=== PATIENT | male | born 1940 | race Caucasian/White ===

== ENCOUNTER → 2018-08-20 | Outpatient (REF) | payer OTHER, MEDICARE ==
[~2018-08-20] MED LIST: B-1100 MG PO; CEPHALEXIN500 M1; DEXAMETHASON2 MG; DILANTIN100 MG; DILANTIN100 MG OR; FAMOTIDINE20 M1; FLAGYL500 MG OR; IMODIUM OR; LABETALOL100 MG OR; METO25TAB PO; METOPROL TAR25 MG OR; METOPROL TAR25 MG PO; MULTI OR; PEPCID20 MG OR; QUESTRAN4 G1 OR; TYLENOL325 MG OR; VIT E D-ALP1000 UNIT PO; VITAMIN D400 UNI2; VITAMIN D50000 UN1 OR
== END | disposition home or self-care (01) | DRG 552 ==
LOC: DI 12:40
PROVIDERS: ATTEND Internal Medicine Geriatric Medicine
DX: M54.6 Pain in thoracic spine (principal); J98.11 Atelectasis

== ENCOUNTER → 2018-09-02 | Outpatient (REF) | END | disposition home or self-care (01) | DRG 434 | LOC: LAB 11:22 | PROVIDERS: ATTEND Internal Medicine Gastroenterology | DX: K74.60 Unspecified cirrhosis of liver (principal); K59.00 Constipation, unspecified; Z85.038 Personal history of other malignant neoplasm of large intestine ==

== ENCOUNTER 2019-02-12 14:50 | Inpatient (IN) | payer MEDICARE ==
[~2019-02-12] VITALS: Ht 185.4 cm; Wt 75.5 kg
[~2019-02-12 14:50] MED LIST changes: +B121000 MCG PO; +FUROSEMIDE20 MG PO; +LISINOPRIL10 MG PO
--- NOTE | 2019-02-12 14:50 | NUR ---
PATIENT TO ROOM VIA EMS WITH EYES CLOSED, ORIENTED ONLY TO SELF.
[2019-02-12 16:21] LABS: HEMATOCRIT 29.7 % (39.0-50.0); IMMATURE GRANULOCYTES 1.2 % (0.0-5.0); MEAN CELL VOLUME 100.7 fL CALC (80.0-100.0); MEAN CORPUSCULAR HGB 33.9 pG CALC (26.0-32.0); MEAN CORPUSCULAR HGB CONC 33.7 g/L CALC (32.0-36.0); NEUT# 4.23 thou/uL (1.82-7.42); RED BLOOD COUNT 2.95 mill/uL (4.70-6.10); RED CELL DISTRI WIDTH 17.3 % (11.5-15.5)
--- NOTE | 2019-02-12 16:37 | NUR ---
PT WITH LAC IV SITE PROVIDES BLOOD DRAW. FAMILY AT BEDSIDE OF VERY ILL MAN.
[2019-02-12 16:39] LABS: INTERNATIONAL NORMALIZED RATIO 1.3 RATIO (0.7-1.3); PROTHROMBIN TIME 13.4 SECONDS (9.0-12.5)
[2019-02-12 16:58] LABS: ALBUMIN 2.8 g/dL (3.2-5.0); BILIRUBIN, TOTAL 5.5 mg/dL (0.0-1.4); CREATININE 1.8 mg/dL (0.7-1.3); POTASSIUM 2.6 mmol/l (3.5-5.1); TOTAL PROTEIN 7.6 g/dL (6.3-8.2)
[2019-02-12] MEDS ORDERED: TURMERIC CURCU500 MG PO (17:11)
--- NOTE | 2019-02-12 19:25 | NUR ---
DR DWYER ORDERS TELEMETRY FOR PT PER POTASSIUM ADMINISTRATION. FAMILY STATES THAT THEY WANT HIM TO BE FULL CODE, DO EVERYTHING TO SAVE HIM. REPORT WAS CALLED TO [place].
--- NOTE | 2019-02-12 19:30 | NUR ---
TO FLOOR VIA STRETCHER WITH POCKET MONITOR/NURSE/DAUGHTER. VALUABLES WITH PT.
--- NOTE | 2019-02-12 20:05 | NUR ---
PT TO BE ADMITTED. REPORT CALLED TO FLOOR. TO FLOOR WITH STRETCHER.FAMILY AT BEDSIDE. TRANSFERRED TO BED. PT GROGGY.
--- NOTE | 2019-02-12 20:06 | NUR ---
PT. ARRIVED TO THE FLOOR VIA STETCHER ACCOMPANIED BY ER STAFF. TRANSFERRED OVER TO BED @1999. PT. IS ALERT TO SELF ONLY. FAMILY IN AT BEDSIDE AND UPDATED ON POC. PT. IS VERY DROWSY WITH EYES SHUT WILL OPEN THEM INTERMITTENTLY. WILL AROUSE TO VERBAL STIMULI WELL. ALL PMH OBTAINED FROM AT BEDSIDE. PER PT. HAS HAD MULTIPLE FALLS AT HOME OUT OF THE BED AND WITHIN THE LAST WEEK HAS NOT BEEN WALKING MOSTLY BED BOUND OTHER THAN THE FALLS HE HAS HAD. FALL BAND APPLIED AND BED ALARM IS SET FOR SAFETY PRECAUTIONS. X3 SIDE RAILS UP. ADMISSION ASSESSMENT COMPLETED. PT. HAS MULTIPLE ABRASIONS NOTED THROUGHOUT BODY AND A DRY RASH NOTED TO BUTTOCKS PER FAMILY THEY REPORT THESE ARE FROM FALLS AT HOME AND THEY HAVE CARPET SO IT MAY BE RUG BURN WELL; PHOTOS OBTAINED AND TO BE PLACED IN CHART. TELEMETRY IN PLACE. PT. IS PLACED INTO A GOWN. PT. IS ABLE TO TURN. IV SITE PATENT AND SL. AWAITING POTASSIUM TO BE BROUGHT SO IT CAN BE ADMINISTERED. CALL LIGHT IS IN REACH. WILL CONTINUE TO MONITOR.
--- NOTE | 2019-02-12 20:30 | NUR ---
NOTIFIED TALENT MANAGEMENT SPECIALIST OF NEED FOR POTASSIUM IV FOR PT.
[2019-02-12 20:36] VITALS: BP 146/72
--- NOTE | 2019-02-12 21:19 | NUR ---
HAD TO AWAIT POTASSIUM MEDICATION HAD TO BE REPROFILED AND THEN BROUGHT FROM TACK WELDER. MEDICATION HUNG AT THIS TIME. ONLY 50MLS TO BE INFUSED FOR TOTAL DOSE ORDERED.
[2019-02-12 23:41] VITALS: BP 133/65
[2019-02-12 23:45] LABS: HEMATOCRIT 30.2 % (39.0-50.0); IMMATURE GRANULOCYTES 1.4 % (0.0-5.0); MEAN CORPUSCULAR HGB 33.4 pG CALC (26.0-32.0); MEAN CORPUSCULAR HGB CONC 33.1 g/L CALC (32.0-36.0); NEUT# 7.4 thou/uL (1.82-7.42); RED BLOOD COUNT 2.99 mill/uL (4.70-6.10); RED CELL DISTRI WIDTH 17.7 % (11.5-15.5)
[2019-02-13] LABS: ALBUMIN 2.7 g/dL (3.2-5.0); BILIRUBIN, TOTAL 5.8 mg/dL (0.0-1.4); CREATININE 1.7 mg/dL (0.7-1.3); POTASSIUM 3.5 mmol/l (3.5-5.1); TOTAL PROTEIN 7.4 g/dL (6.3-8.2)
--- NOTE | 2019-02-13 00:05 | NUR ---
PT. CLEANED OF A LARGE INCONTINENCE OF URINE; CBB AND LINENS CHANGED. PT. TOLERATED WELL. PO FLUIDS GIVEN. BED ALARM ON. CALL LIGHT IS IN REACH.
[2019-02-13 03:10] VITALS: BP 131/61
--- NOTE | 2019-02-13 03:10 | NUR ---
PT. INTEMITTENTLY RESTLESS. URINE SPECIMEN OBTAINED AT THIS TIME. PT. ABLE TO VOID 350 MLS INTO URINAL. VSS. PO FLUIDS OFFERED. BED ALARM ON. CALL LIGHT IS IN REACH.
[2019-02-13 03:56] LABS: URINE BILIRUBIN - DIPSTICK NEGATIVE (NEGATIVE); URINE BLOOD DIPSTICK TRACE-INTACT (NEGATIVE); URINE COLOR YELLOW; URINE GLUCOSE - DIPSTICK NEGATIVE (NEGATIVE); URINE KETONE NEGATIVE (NEGATIVE); URINE NITRITE - DIPSTICK NEGATIVE (Negative); URINE PH 6.5 (4.5-8.0); URINE PROTEIN - DIPSTICK NEGATIVE (NEG-TRACE); URINE UROBILINOGEN - DIPSTICK 0.2 E.U./dL (0.2)
[2019-02-13 03:57] LABS: URINE LEUK ESTERASE LARGE (NEGATIVE)
[2019-02-13 03:58] LABS: URINE RBC 0-2 RBC/hpf (0-5)
[2019-02-13 03:59] LABS: URINE BACTERIA FEW hpf; URINE EPITHELIAL CELLS FEW EPI/hpf (0-FEW)
[2019-02-13 04:04] LABS: BARBITURATES NEGATIVE (NEGATIVE); COCAINE NEGATIVE (NEGATIVE); METHADONE NEGATIVE (NEGATIVE); OXCYCODONE NEGATIVE (NEGATIVE); TETRAHYDROCANNABIONOL NEGATIVE (NEGATIVE); TRICYLIC ANTIDEPRESSANTS NEGATIVE (NEGATIVE)
--- NOTE | 2019-02-13 05:22 | NUR ---
CHECKED FOR INCONTINENCE OF URINE AND NONE NOTED. PLACED URINAL IN BETWEEN LEGS TO SEE IF HE WILL VOID ON HIS OWN AGAIN. SCHED MED GIVEN. PO FLUIDS OFFERED. CALL LIGHT IS IN REACH.
[2019-02-13 05:45] LABS: HEMATOCRIT 27.8 % (39.0-50.0); HEMOGLOBIN 9.2 g/dl (14.0-18.0); IMMATURE GRANULOCYTES 1.2 % (0.0-5.0); MEAN CELL VOLUME 102.2 fL CALC (80.0-100.0); MEAN CORPUSCULAR HGB 33.8 pG CALC (26.0-32.0); MEAN CORPUSCULAR HGB CONC 33.1 g/L CALC (32.0-36.0); NEUT# 6.32 thou/uL (1.82-7.42); RED BLOOD COUNT 2.72 mill/uL (4.70-6.10); RED CELL DISTRI WIDTH 17.3 % (11.5-15.5)
[2019-02-13 05:51] LABS: ALBUMIN 2.5 g/dL (3.2-5.0); BILIRUBIN, TOTAL 5.2 mg/dL (0.0-1.4); CREATININE 1.7 mg/dL (0.7-1.3); TOTAL PROTEIN 6.9 g/dL (6.3-8.2)
[2019-02-13 06:06] LABS: POTASSIUM 2.6 mmol/l (3.5-5.1)
--- NOTE | 2019-02-13 07:30 | NUR ---
PT RESTING IN BED NO SIGNS OF DISTRESS NOTED, RESP SHALLOW. PT VERY LETHARGIC, SLOWLY OPENED HIS EYES, NON VERBAL AT THIS TIME, VITALS OBTAINED. PT DOES NOT OBEY SIMPLE COMMANDS.PT APPEARS JAUNDICE, NOTED ABRASIONS AND BRUISING TO EXTREMITIES PAINTER PLATE AT BEDSIDE TO FEED, PT UNABLE TO EAT PANCAKES, GIVEN PUDDING INSTEAD, TOLERATED WELL. ASSESSMENT COMPLETED, CALL LIGHT IN REACH,CONTINUE TO MONITOR.
[2019-02-13 07:31] VITALS: BP 125/65
--- NOTE | 2019-02-13 09:42 | NUR ---
PT RESTING IN BED, GIVEN PO POTASSIUM, REPOSITIONED IN BED WITH PILLOWS. CALL LIGHT IN REACH,CONTINUE TO MONITOR. BED ALARM FOR SAFETY.
[2019-02-13 11:25] VITALS: BP 106/50
--- NOTE | 2019-02-13 13:35 | NUR ---
AIR MATTRESS ARRIVED, PT PLACED ON NEW MATTRESS AND REPOSITIONED WITH PILLOWS. FAMILY AT BEDSIDE, PT TOLERATED WELL. CALL LIGHT IN REACH,CONTINUE TO MONITOR.
[2019-02-13 16:10] VITALS: BP 101/50
--- NOTE | 2019-02-13 16:14 | NUR ---
PT HAD NOT VOIDED ALL DAY, BLADDER SCANNED AMT >710ML. CALL MADE TO FOR MURPHY CATHETER, WHEN RETURNED TO DISCUSS WITH FAMILY PT HAD VOIDED. POST RESIDUAL BLADDER SCANNED AMT >405ML. DUE TO URINARY RETENTION #16F MURPHY PLACED USING STERILE TECHNINQUE, NOTED SOME RESISTANCE BUT CATHETER INSERTED INTO BLADDER CLEAR YELLOW URINE WITH SEDIMENT NOTED IN TUBING. PT TOLERATED WELL. STAT LOCK IN PLACE TO L INNER THIGH, REPOSITONED PT IN BED, CALL LIGHT IN REACH,CONTINUE TO MONITOR, FAMILY AT BEDSIDE.
--- NOTE | 2019-02-13 18:55 | NUR ---
RECEIVED ORDERS FROM TO OBTAIN URINE CULTURE, BLOOD CULTURES, SPUTUM CULTURE, AND A 1x DOSE OF SOLUMEDROL. ZHANE ENTERED. DISCUSSED WITH PT, INFORMED PT OF STRAIGHT CATHETERIZATION TO OBTAIN URINE,#16F CATHETER INSERTED USING STERILE TECHINIQUE NO RESISTANCE NOTED, PT TOLERATED WELL. SPECIMEN SENT TO LAB. CONTINUE TO MONITOR.
[2019-02-13 19:33] VITALS: BP 113/58
--- NOTE | 2019-02-13 20:20 | NUR ---
RESTING IN BED WITH EYES CLOSED AND IS DROWSY. NO DISTRESS NOTED. PT. IS ON AIR MATRESS. MURPHY CATHETER INTACT AND DRAINING AT GRAVITY LEVEL.PT. IS ONLY ALERT TO SELF. SPEECH IS GARBLED. GENERALIZED ABRASIONS; SEE PHOTOS IN CHART. IV SITE PATENT AND INFUSING ORDERED IVF. BED ALARM IN PLACE. CALL LIGHT IS IN REACH.
--- NOTE | 2019-02-13 21:50 | NUR ---
PT. GIVEN A CBB AND LINENS CHANGED. PT. TOLERATED WELL. REPOSITIONED. BED ALARM ON. CALL LIGHT IS IN REACH.
--- NOTE | 2019-02-13 22:20 | NUR ---
PT. IS A LITTLE RESTLESS AND MEDICATED WITH ORDERED RESTORIL. PT. ATE A COMPLETE ACTIVIA YOGURT AT THIS TIME WELL. BED ALARM ON. CALL LIGHT IS IN REACH.
[2019-02-13 23:33] VITALS: BP 95/54
--- NOTE | 2019-02-13 23:37 | NUR ---
PT. RESTING IN BED WITH EYES CLOSED; NO DISTRESS NOTED; REPOSITIONED. VSS. BED ALARM ON. CALL LIGHT IS IN REACH.
[2019-02-14 04:05] VITALS: BP 110/53
--- NOTE | 2019-02-14 04:30 | NUR ---
NOTIFIED DR. DWYER THAT PER CARDIOVASCULAR RN PT. IS POSSIBLY IN AFLUTTER. EKG DONE BT RT AND DUE TO PT. SHAKING CONTINUOUSLY UNABLE TO OBTAIN A RHYTHYM OF EKG. NEW ORDERS RECEIVED TO D/C TELEMETRY AT THIS TIME.
[2019-02-14 05:29] LABS: ALBUMIN 2.4 g/dL (3.2-5.0); BILIRUBIN, TOTAL 4.5 mg/dL (0.0-1.4); POTASSIUM 2.8 mmol/l (3.5-5.1); TOTAL PROTEIN 6.7 g/dL (6.3-8.2)
[2019-02-14 05:35] LABS: HEMATOCRIT 30.2 % (39.0-50.0); HEMOGLOBIN 10.1 g/dl (14.0-18.0); IMMATURE GRANULOCYTES 1.6 % (0.0-5.0); MEAN CELL VOLUME 103.1 fL CALC (80.0-100.0); MEAN CORPUSCULAR HGB 34.5 pG CALC (26.0-32.0); MEAN CORPUSCULAR HGB CONC 33.4 g/L CALC (32.0-36.0); NEUT# 4.11 thou/uL (1.82-7.42); RED BLOOD COUNT 2.93 mill/uL (4.70-6.10); RED CELL DISTRI WIDTH 17.6 % (11.5-15.5)
--- NOTE | 2019-02-14 07:00 | NUR ---
REPORT RECEIVED FROM SIXTO ALEJANDRA;PT APPEARS TO BE SLEEPING IN SEMI FOWLERS POSITION;NO S/S OF DISTRESS NOTED;RESPIRATIONS EVEN AND UNLABORED ON RA;IV FLUIDS INFUSING WITH EASE TO RFA PER ORDER;MURPHY CATHETER PATENT DRAINING TO GRAVITY;ALL SAFETY PRECAUTIONS IN PLACE WITH BED IN THE LOWEST POSITION, BED ALARM ON FOR SAFETY, AND CALL LIGHT IN REACH;WILL CONTINUE TO MONITOR
[2019-02-14 08:00] VITALS: BP 148/73
--- NOTE | 2019-02-14 08:00 | NUR ---
PT RESTING IN SEMI FOWLERS POSITION WITH SPOUSE AT BEDSIDE, ALERT TO SELF AT TIMES BUT MOSTLY NON-VERBAL;RE-POSITIONED IN BED FOR BREAKFAST, ANAT ALVARADO TO FEED;VS OBTAINED AND ASSESSMENT COMPLETED;NO S/S OF DISTRESS NOTED;RESPIRATIONS SHALLOW ON RA;ABDOMEN SOFT ON PALPATION AND ACTIVE IN ALL 4 QUADRANTS;MURPHY CATHETER APPEARS PATENT DRAINING DAINA/CLEAR URINE TO GRAVITY WITH EASE, STAT LOCK NOTED TO LEFT THIGH;WEAK PEDAL PULSES;MULTIPLE ABRASIONS NOTED TO BILATERAL KNEES AND SHOULDER R/T FALL FIRE RANGER, PHOTOGRAPHS IN CHART;#22G TO RIGHT FOREARM INFUSING D5 1/2 NS @ 125ML/HR PER ORDER,SITE APPEARS HEALTHY;ALL SAFETY PRECAUTIONS REINFORCED AT THIS TIME WITH BED IN THE LOWEST POSITION AND BED ALARM ON FOR SAFETY;CALL LIGHT IN REACH;WILL CONTINUE TO MONITOR
--- NOTE | 2019-02-14 08:30 | NUR ---
AT BEDSIDE DISCUSSING POC WITH FAMILY AND PATIENT.
--- NOTE | 2019-02-14 08:45 | NUR ---
DISCUSSED PATIENT CODE STATUS INDEPTH TO FAMILY;FAMILY REPORTS THAT THEY DO NOT WANT ANY LIFE SAVING MEASURES TAKEN IF THE PATIENTS HEART WAS TO STOP SUCH INTUBATION OR CPR;DNR FORM SIGNED BY BOTH AND FAMILY. DNR FORM PLACED IN CHART AND BRACELET APPLIED TO PT LEFT ARM. WILL CONTINUE TO MONITOR
[2019-02-14 11:00] VITALS: BP 118/75
--- NOTE | 2019-02-14 11:30 | NUR ---
PT APPEARS TO BE SLEEPING IN LEFT SIDE LAYING POSITION, MOVING AROUND BED AT TIMES;RESPIRATIONS EVEN AND UNLABORED ON RA;NO S/S OF DISTRESS NOTED;POTASSIUM K RIDER INFUSING TO RFA WITH EASE;MURPHY CATHETER DRAINING TO GRAVITY;ASSESSMENT REMAINS UNCHANGED AT THIS TIME;FALL PRECAUTIONS REMAIN IN PLACE WITH BED ALARM ON FOR SAFETY;CALL LIGHT IN REACH;WILL CONTINUE TO MONITOR
[2019-02-14 15:58] VITALS: BP 124/71
--- NOTE | 2019-02-14 15:59 | NUR ---
LAB AT BEDSIDE
--- NOTE | 2019-02-14 16:00 | NUR ---
PT RESTING IN BED WITH MULTIPLE FAMILY MEMBERS AT BEDSIDE;RESPIRATIONS EVEN AND UNLABORED,SHALLOW ON RA;NO S/S OF DISTRESS NOTED;IV FLUIDS INFUSING TO RFA WITH EASE;MURPHY CATHETER PATENT;PT RE-POSITIONED IN BED;VS OBTAINED;ASSESSMENT REMAINS UNCHANGED AT THIS TIME;FALL PRECAUTIONS IN PLACE WITH BED ALARM ON FOR SAFETY;CALL LIGHT IN REACH;WILL CONTINUE TO MONITOR
--- NOTE | 2019-02-14 16:32 | NUR ---
AT BEDSIDE DISCUSSING POC.
[2019-02-14 16:50] LABS: CREATININE 1.9 mg/dL (0.7-1.3)
[2019-02-14 17:05] LABS: POTASSIUM 3.4 mmol/l (3.5-5.1)
[2019-02-14 20:24] VITALS: BP 114/68
--- NOTE | 2019-02-14 20:24 | NUR ---
ASSESSMENT COMPLETED. IV SITE PATENT AND INFUSING IVF WELL, NO REDNESS NOTED TO SITE. PO FLUIDS OFFERED. FAMILY IN AT BEDSIDE. REPOSITIONED ONTO LEFT SIDE. CHECKED FOR BM AND NONE NOTED. MURPHY CATHETER INTACT AND DRAINING AT GRAVITY LEVEL. GENERALIZED ABRASIONS NOTED. PT. ALERT TO SELF ONLY. ENCOURAGED TO CALL FOR ANY NEEDS. BED ALARM ON AND CALL LIGHT IS IN REACH.
--- NOTE | 2019-02-14 23:37 | NUR ---
PT. SITTING UP IN BED WITH NO DISTRESS NOTED; PO FLUIDS GIVEN. SCHED MARITZA PRIETO. CALL LIGHT IS IN REACH. BED ALARM ON. WILL CONTINUE TO MONITOR.
--- NOTE | 2019-02-15 01:00 | NUR ---
PT. GIVEN A CBB AND LINENS CHANGED. CLEANED OF A BM; PHOTOS RE-OBTAINED OF ABRASIONS AND BUTTOCKS FOR CHART. IV SITE TO RFA IS INFILTRATED AND REMOVED; CATHETER TIP INTACT. NEW IV STARTED TO LFA X1 ATTEMPT.AQUACEL FOAM APPLIED TO BUTTOCKS. REPOSITOINED ONTO LEFT SIDE.
[2019-02-15 03:57] VITALS: BP 124/70
--- NOTE | 2019-02-15 04:00 | NUR ---
PT. CHECKED FOR INCONTINENCE OF BM AND NONE NOTED. VSS. REPOSITIONED ONTO RIGHT SIDE. BED ALARM ON FOR SAFETY PRECAUTIONS. IV SITE PATENT AND INFUSING IVF WELL, NO REDNESS OR SWELLING NOTED TO SITE. PO FLUIDS GIVEN. CALL LIGHT IS IN REACH.
--- NOTE | 2019-02-15 05:30 | NUR ---
CHECKED FOR BM AND NONE NOTED. REPOSITIONED INTO SEMI-FOWLERS POSITION. PO FLUIDS OFFERED. CALL LIGHT IS IN REACH. BED ALARM IN PLACE.
[2019-02-15 06:22] LABS: ALBUMIN 2.2 g/dL (3.2-5.0); BILIRUBIN, TOTAL 4.2 mg/dL (0.0-1.4); CREATININE 1.8 mg/dL (0.7-1.3); POTASSIUM 3.2 mmol/l (3.5-5.1); TOTAL PROTEIN 6.5 g/dL (6.3-8.2)
--- NOTE | 2019-02-15 06:55 | NUR ---
REPORT RECEIVED FROM SIXTO ALEJANDRA;PT APPEARS TO BE SLEEPING IN SEMI FOWLERS POSITION;RESPIRATIONS APPEAR EVEN AND UNLABORED,SHALLOW ON O2 @ 2L VIA NC;NO S/S OF DISTRESS NOTED;MURPHY CATHETER PATENT DRAINING TO GRAVITY;IVF INFUSING TO LFA WITH EASE;ALL SAFETY PRECAUTIONS IN PLACE WITH BED IN THE LOWEST POSITION AND BED ALARM ON FOR SAFETY;CALL LIGHT IN REACH;WILL CONTINUE TO MONITOR
--- NOTE | 2019-02-15 08:10 | NUR ---
AT BEDSIDE DISCUSSING POC WITH PT AND SPOUSE.
[2019-02-15 09:15] VITALS: BP 129/80
--- NOTE | 2019-02-15 09:15 | NUR ---
PT RESTING IN BED WITH SPOUSE AT BEDSIDE, A&O X1 AND NON-VERBAL AT TIMES;VS OBTAINED AND ASSESSMENT COMPLETED;NO S/S OF DISTRESS NOTED;RESPIRATIONS EVEN AND UNLABORED,SHALLOW ON O2 @ 2L VIA NC;ABDOMEN SOFT ON PALPATION AND ACTIVE IN ALL 4 QUADRANTS;WEAK PEDAL PULSES;MULTIPLE BRUISING AND HEELING WOUNDS NOTED THROUGHOUT BODY,PHOTOGRAPHS IN CHART;#22G TO LEFT FOREARM INFUSING D5 1/2 NS @ 125ML/HR PER ORDER,SITE APPEARS HEALTHY;MURPHY CATHETER PATENT DRAINING TO GRAVITY WITH EASE,STAT LOCK TO LEFT THIGH;PT AND FAMILY DENY ANY ADDITIONAL NEEDS AT THIS TIME AND ARE ENCOURAGED TO CALL FOR ASSISTANCE IF NEEDED;FALL PRECAUTIONS IN PLACE WITH BED IN THE LOWEST POSITION AND BED ALARM ON FOR SAFETY;CALL LIGHT IN REACH;WILL CONTINUE TO MONITOR
--- NOTE | 2019-02-15 11:30 | NUR ---
PT APPEARS TO BE SLEEPING IN SEMI FOWLERS POSITION WITH FAMILY AT BEDSIDE;RESPIRATIONS APPEAR EVEN AND UNLABORED,SHALLOW ON O2 @2L VIA NC;NO S/S OF DISTRESS NOTED;MURPHY CATHETER PATENT DRAINING TO GRAVITY WITH EASE;IV FLUIDS INFUSING TO LFA, POTASSIUM CHLORIDE ADMINISTERED AT THIS TIME PER ORDER;FAMILY DENIES ANY ADDITIONAL NEEDS AT THIS TIME;FALL PRECAUTIONS REMAIN IN PLACE WITH BED ALARM ON FOR SAFETY;CALL LIGHT IN REACH;WILL CONTINUE TO MONITOR
--- NOTE | 2019-02-15 13:25 | NUR ---
PHYSICAL THERAPY AT BEDSIDE
--- NOTE | 2019-02-15 13:34 | NUR ---
OT AT BEDSIDE
[2019-02-15 15:05] VITALS: BP 120/75
--- NOTE | 2019-02-15 15:30 | NUR ---
PT APPEARS TO BE SLEEPING IN SEMI FOWLERS POSITION WITH FAMILY AT BEDSIDE;RESPIRATIONS EVEN AND UNLABORED ON O2 @ 2L VIA NC;NO S/S OF DISTRESS NOTED;MURPHY CATHETER DRAINING TO GRAVITY WITH EASE;IVF INFUSING TO LEFT FOREARM;FAMILY DENIES ANY ADDITIONAL NEEDS AT THIS TIME;FALL PRECAUTIONS REMAIN IN PLACE WITH BED ALARM ON FOR SAFETY;CALL LIGHT IN REACH;WILL CONTINUE TO MONITOR
[2019-02-15 19:29] VITALS: BP 125/72
--- NOTE | 2019-02-15 20:00 | NUR ---
PT RESTING IN BED, FAMILY AT BEDSIDE, PT IS NONVERBAL. DRESSING TO BUTTOCK CDI, PT HAS MULTIPLE ABRASIONS FROM FALL. MURPHY DRAINING TO GRAVITY, STAT LOCK IN PLACE, NOTED DARK DAINA URINE IN TUBING. PT IS ON AN AIRMATTRESS. DISCUSSED POC WITH FAMILY. PT PLACED ON BED AGGARWAL FOR POSSIBLE BM. ASSESSMENT COMPLETED. CALL LIGHT IN REACH,CONTINUE TO MONITOR.
--- NOTE | 2019-02-15 22:21 | NUR ---
PT RESTING IN BED, NO SIGNS OF DISTRESS NOTED, RESP EVEN AND UNLABORED. CALL LIGHT IN REACH,CONTINUE TO MONITOR.
--- NOTE | 2019-02-15 23:01 | NUR ---
PT REPOSITIONED IN BED, CONTINUE TO MONITOR.
--- NOTE | 2019-02-16 04:10 | NUR ---
PT RESTING IN BED, REPOSITIONED BY CHARGE ACCOUNT IDENTIFICATION CLERK, VITALS OBTAINED, NO SIGNS OF DISTRESS NOTED, RESP EVEN AND UNLABORED. CALL LIGHT IN REACH,CONTINUE TO MONITOR.
[2019-02-16 04:29] VITALS: BP 117/63
[2019-02-16 05:40] LABS: HEMATOCRIT 28.8 % (39.0-50.0); HEMOGLOBIN 9.7 g/dl (14.0-18.0); MEAN CELL VOLUME 100.7 fL CALC (80.0-100.0); MEAN CORPUSCULAR HGB 33.9 pG CALC (26.0-32.0); MEAN CORPUSCULAR HGB CONC 33.7 g/L CALC (32.0-36.0); NEUT# 4.24 thou/uL (1.82-7.42); RED BLOOD COUNT 2.86 mill/uL (4.70-6.10); RED CELL DISTRI WIDTH 17.7 % (11.5-15.5)
[2019-02-16 06:05] LABS: ALBUMIN 2.1 g/dL (3.2-5.0); BILIRUBIN, TOTAL 4.1 mg/dL (0.0-1.4); CREATININE 1.5 mg/dL (0.7-1.3); TOTAL PROTEIN 6.2 g/dL (6.3-8.2)
--- NOTE | 2019-02-16 07:00 | NUR ---
REPORT RECEIVED FROM DELFINO ALLEN;PT APPEARS TO BE SLEEPING IN SEMI FOWLERS POSITION;RESPIRATIONS APPEARS EVEN AND UNLABORED ON RA;NO S/S OF DISTRESS NOTED;IV FLUIDS INFUSING TO LFA WITH EASE;MURPHY CATHETER PATENT DRAINING TO GRAVITY WITH EASE;ALL SAFETY PRECAUTIONS IN PLACE WITH BED ALARM ON FOR SAFETY;CALL LIGHT IN REACH;WILL CONTINUE TO MONITOR
--- NOTE | 2019-02-16 07:15 | NUR ---
XRAY AT BEDSIDE
--- NOTE | 2019-02-16 08:05 | NUR ---
AT BEDSIDE DISCUSSING POC.
--- NOTE | 2019-02-16 08:50 | NUR ---
PT RESTING IN RIGHT SIDE LAYING POSITION, ALERT TO PERSON;VS OBTAINED AND ASSESSMENT COMPLETED;PT DENIES ANY CURRENT PAIN OR DISCOMFORTS, NO S/S OF DISTRESS NOTED;RESPIRATIONS SHALLOW ON O2 @ 2L VIA NC, DIMINISHED LUNG SOUND;NON-PRODUCTIVE COUGH AT TIMES;ABDOMEN SOFT ON PALPATION AND ACTIVE IN ALL 4 QUADRANTS;MURPHY CATHETER PATENT DRAINING TO GRAVITY WITH EASE,STAT LOCK TO LEFT THIGH NOTED;WEAK PEDAL PULSES;MULTIPLE SKIN ABRASIONS NOTED THROUGHOUT, PHOTOGRAPHS IN CHART;#22G TO LEFT FOREARM INFUSING D5 1/2 NS @ 125ML/HR,SITE APPEARS HEALTHY;POTASSIUM K-RIDER HUNG AT THIS TIME PER ORDER;PT DENIES ANY ADDITIONAL NEEDS AT THIS TIME;FALL PRECAUTIONS IN PLACE WITH BED IN THE LOWEST POSITION AND CALL LIGHT IN REACH;WILL CONTINUE TO MONITOR
[2019-02-16 08:52] VITALS: BP 107/60
--- NOTE | 2019-02-16 10:05 | NUR ---
PHYSICAL THERAPY AT BEDSIDE WORKING WITH PATEINT.
--- NOTE | 2019-02-16 10:23 | NUR ---
Therapist entered room at 10:00 A.M., unable to arouse patient, attempted numerous times.
--- NOTE | 2019-02-16 11:20 | NUR ---
PT APPEARS TO BE SLEEPING IN SEMI FOWLERS POSITION;RESPIRATIONS REMAIN SHALLOW ON O2 @ 2L VIA NC;NO S/S OF DISTRESS NOTED;IV POTASSIUM HUNG AT THIS TIME AND INFUSING WELL TO LFA;MURPHY CATHETER PATENT DRAINING TO GRAVITY WITH EASE;FALL PRECAUTIONS NOTED WITH BED IN THE LOWEST POSITION AND BED ALARM ON FOR SAFETY;CALL LIGHT IN REACH;WILL CONTINUE TO MONITOR
[2019-02-16 15:15] VITALS: BP 119/70
--- NOTE | 2019-02-16 15:30 | NUR ---
PT APPEARS TO BE SLEEPING IN SEMI FOWLERS POSITION WITH FAMILY AT BEDSIDE;RESPIRATIONS EVEN AND UNLABORED ON O2 @ 2L VIA NC;NO S/S OF DISTRESS NOTED;IVF INFUSING TO LFA WITH EASE;ASSESSMENT REMAINS UNCHANGED;FALL PRECAUTIONS IN PLACE WITH CALL LIGHT IN REACH;WILL CONTINUE TO MONITOR
[2019-02-16 18:57] VITALS: BP 110/69
--- NOTE | 2019-02-16 19:32 | NUR ---
REPORT FROM BRAD SALEH. PT RESTING IN BED IN SUPINE POSITION. NO DISTRESS NOTED. 02 @ 2L/M VIA NC. IV FLUIDS INFUSING WITHOUT DIFFICULTY. IV SITE APPEARS HEALTHY. AIR MATRESS IN PLACE. MURPHY PATENT DRAINING TO GRAVITY. FAMILY AT BEDSIDE. CALL LIGHT WITHIN REACH AND BED ALARM SET FOR SAFETY.
--- NOTE | 2019-02-16 20:32 | NUR ---
PT REPOSITIONED ON RIGHT SIDE WITH PILLOWS. PT INCONTINENT OF BOWEL AT THIS TIME. LINENS CHANGED AND PERICARE PROVIDED. CALL LIGHT WITHIN REACH AND BED ALARM FOR SAFETY. WILL CONTINUE TO MONITOR.
--- NOTE | 2019-02-17 00:31 | NUR ---
IV ABT INFUSING, NO S/S OF ADVERSE REACTION NOTED. CALL LIGHT WITHIN REACH AND BED ALARM SET FOR SAFETY. WILL CONTINUE TO MONITOR.
--- NOTE | 2019-02-17 02:43 | NUR ---
COMPLETE BED BATH AND LINEN CHANGE AT THIS TIME. PT POSITIONED ON RIGHT SIDE. NO DISTRESS NOTED. PT TOLERATED WELL.
[2019-02-17 04:45] VITALS: BP 148/70
--- NOTE | 2019-02-17 07:00 | NUR ---
REPORT RECEIVED FROM DELFINO LION;PT RESTING IN BED, RE-POSITIONED FOR COMFORT;INTRODUCED SELF TO PT AND POC DISCUSSED;RESPIRATIONS EVEN AND UNLABORED ON O2 @ 2L VIA NC;IV FLUIDS INFUSING TO LFA WITH EASE PER ORDER;PT DENIES ANY CURRENT PAIN OR NEEDS, ENCOURAGED TO CALL FOR ASSISTANCE IF NEEDED;FALL PRECAUTIONS IN PLACE WITH BED ALARM ON FOR SAFETY;CALL LIGHT IN REACH;WILL CONTINUE TO MONITOR
--- NOTE | 2019-02-17 08:00 | NUR ---
PT RESTING IN HIGH FOWLERS POSITION BEING FEED BREAKFAST BY ANAT CHAPIN WITH SPOUSE AT BEDSIDE;VS OBTAINED AND ASSESSMENT COMPLETED;PT ALERT TO PERSON, IS ABLE TO REPLY "YES" AND "NO" TO SIMPLE QUESTIONS;PLEASANT;PT DENIES ANY CURRENT PAIN OR DISCOMFORTS,PAIN SCALE AND REPORTING EDUCATED;RESPIRATIONS EVEN AND UNLABORED ON O2 @ 2L VIA NC, CLEAR/DIMINISHED LUNG SOUNDS NOTED;NON-PRODUCTIVE COUGH NOTED AT TIMES;ABDOMEN SOFT ON PALPATION AND ACTIVE IN ALL 4 QUADRANTS;MURPHY CATHETER PATENT DRAINING CLEAR/YELLOW URINE TO GRAVITY WITH EASE,STAT LOCK NOTED TO LEFT THIGH;WEAK PEDAL PULSES;MULTIPLE HEALING SKIN ABRASIONS NOTED THROUGHOUT, ADRIA;#22G TO LEFT FOREARM INFUSING D5 1/2 NS @ 125ML/HR PER ORDER;PT AND FAMILY DENY ANY ADDITIONAL NEEDS AT THIS TIME;FALL PRECAUTIONS REMAIN IN PLACE WITH BED ALARM ON FOR SAFETY;CALL LIGHT IN REACH;WILL CONTINUE TO MONITOR
[2019-02-17 08:03] VITALS: BP 137/83
--- NOTE | 2019-02-17 08:08 | NUR ---
AT BEDSIDE DISCUSSING POC WITH PATIENT AND FAMILY.
--- NOTE | 2019-02-17 09:22 | NUR ---
PHYSICAL THERAPY AT BEDSIDE
--- NOTE | 2019-02-17 09:46 | NUR ---
Treatment today was focused on functional activities. Entered pt. room with pt. in semi-fowlers position, agreed to participate in therapy session. Cognitive function is low, but he does answer to female relative. Supine to sit (MOD A), sit to stand(MAX A), VC for correct hand placement and safety precautions. Pt. unable to satnd w/o therapist assistance. Transfered pt. (MAX A) to reclining chair. While in chair pt. executed 3 seated marches with high verbal and tactile cueing. Pt. was seated in in reclining chair with feet propped up w/ pillow under LE. Call english and tray table by pt. side. AMPAC 6 score is 7/24.
--- NOTE | 2019-02-17 10:24 | NUR ---
OT AT BEDSIDE WORKING WITH PATIENT.
--- NOTE | 2019-02-17 10:43 | NUR ---
Patient unable to understand this morning. Received patient sitting up in recliner with alarm and goldman cath with present. Patient was motivated to stand and patient needed Tot A to scoot to edge of chair and performed sit <-> stand with Max A, stood for approx 30 sec with forward flexed posture and could not stand upright even with tactile and max VCs. Patient instructed in grooming of brushing teeth and needed Tot A with [id number]. O.T. educated in performing [id number] technique. Patient requested to go back to bed, however, O.T. explained to patient that P.T. will be back before lunch to help him back to bed. Patient was cooperative. Alarm placed back on patient and call light on patient's lap. O.T. recommends SNF placement for patient due to Ampac score of 6.
--- NOTE | 2019-02-17 11:45 | NUR ---
PT OOB RESTING IN RECLINER WITH SPOUSE AT BEDSIDE;RESPIRATIONS EVEN AND UNLABORED ON O2 @ 2L VIA NC;PT DENIES ANY CURRENT PAIN OR DISCOMFORTS;IV FLUIDS INFUSING TO LFA WITH EASE;MURPHY CATHETER PATENT;PT AND SPOUSE DENY ANY ADDITIONAL NEEDS AT THIS TIME AND ARE ENCOURAGED TO CALL FOR ASSISTANE IF NEEDED;CALL LIGHT IN REACH;WILL CONTINUE TO MONITOR
[2019-02-17 14:45] VITALS: BP 106/58
--- NOTE | 2019-02-17 16:00 | NUR ---
PT APPEARS TO BE SLEEPING IN SEMI FOWLERS POSITION;RESPIRATIONS EVEN AND UNLABORED ON O2 @ 2L VIA NC;NO S/S OF DISTRESS NOTED;IV FLUIDS INFUSING TO LFA PER ORDER;ASSESSMENT REMAINS UNCHANGED AT THIS TIME;FALL PRECAUTIONS IN PLACE WITH CALL LIGHT IN REACH;WILL CONTINUE TO MONITOR
--- NOTE | 2019-02-17 19:00 | NUR ---
REPORT RECEIVED FROM DELFINO SALINAS. PT RESTING IN BED, AT BEDSIDE. NO S/S OF DISTRESS AT THIS TIME. WILL CONTIUE TO MONITOR.
[2019-02-17 19:07] VITALS: BP 138/72
--- NOTE | 2019-02-17 21:00 | NUR ---
PT RESTING IN BED. PT CONFUSED. RESPIRATIONS EVEN AND UNLABORED. LUNGS SOUND CLEAR/DIMINISHED. PEDAL PULSES WEAK. REPOSITIONED PT IN BED. BED ALARM ACTIVE FOR PT SAFETY. WILL CONTINUE TO MONITOR.
--- NOTE | 2019-02-17 21:40 | NUR ---
REPORT RECEIVED FROM DELFINO SALINAS. PT RESTING IN BED. NO S/S OF DISTRESS AT THIS TIME. WILL CONTINUE TO MONITOR.
--- NOTE | 2019-02-18 00:15 | NUR ---
PT RESTING IN BED. RESPIRATIONS SHALLOW ON O2 @ 2L VIA NC. SAFETY PRECAUTIONS IN PLACE. WILL CONTINUE TO MONITOR.
--- NOTE | 2019-02-18 04:59 | NUR ---
PT RESTING IN BED. RESPIRATIONS SHALLOW ON O2 @ 2L VIA NC. NO S/S OF DISTRESS AT THIS TIME. BED ALARM ACTIVE FOR PT SAFETY. WILL CONTINUET TO MONITOR.
[2019-02-18 05:43] VITALS: BP 155/89
[2019-02-18 06:05] LABS: HEMATOCRIT 28.7 % (39.0-50.0); HEMOGLOBIN 9.6 g/dl (14.0-18.0); IMMATURE GRANULOCYTES 0.6 % (0.0-5.0); MEAN CELL VOLUME 101.1 fL CALC (80.0-100.0); MEAN CORPUSCULAR HGB 33.8 pG CALC (26.0-32.0); MEAN CORPUSCULAR HGB CONC 33.4 g/L CALC (32.0-36.0); NEUT# 4.73 thou/uL (1.82-7.42); RED BLOOD COUNT 2.84 mill/uL (4.70-6.10); RED CELL DISTRI WIDTH 18.3 % (11.5-15.5)
[2019-02-18 06:22] LABS: CREATININE 1.4 mg/dL (0.7-1.3); POTASSIUM 3.2 mmol/l (3.5-5.1)
--- NOTE | 2019-02-18 06:45 | NUR ---
RECIEVED REPORT FROM SIXTO ONEIL. ASSUMED PT CARE.
[2019-02-18 07:00] VITALS: BP 150/82
--- NOTE | 2019-02-18 07:00 | NUR ---
PT RESTING IN BED, ALERT, STAFF MUST ANTICIPATE NEEDS, PT FOLLOWS CUES. ASSESSMENT COMPLETED. REMAINS ON PRESSURE MATTRESS, REPOSITION Q2HRS AND PRN. D51/2NS CONTINUES ORDERED, NO S/S OF INFILTRATION OR INFECTION NOTED AT THIS TIME. PT AFEBRILE. CALL LIGHT IN REACH, BED ALARM INTACT. WILL MONITOR CLOSELY.
--- NOTE | 2019-02-18 09:00 | NUR ---
DR. DWYER AT BEDSIDE FOR ASSESSMENT AND TO DISCUSS PALN OF CARE, NEW ORDERS RECIEVED. PENDING PLACEMENT FOR REHAB. WILL MONITOR.
--- NOTE | 2019-02-18 11:20 | NUR ---
PT RESTING IN BEAD WATCHING TV, OFFERS NO COMPLAINTS AT THIS TIME, BED ALARM INTACT. CALL LIGHT IN REACH. WILL MONITOR CLOSELY.
--- NOTE | 2019-02-18 12:45 | NUR ---
niece called, family at bedside.
--- NOTE | 2019-02-18 15:02 | NUR ---
Discharge instructions given. Patient verbalizes understanding of same. Discharged in stable condition via Wheelchair to [facility] with *Other. All belongings sent with pt.
== END 2019-02-18 14:51 | DRG 194 ==
LOC: ED 14:50 → ED-I 17:50 → ED 18:03 → MS2 18:04
PROVIDERS: ADMIT Internal Medicine Geriatric Medicine; ATTEND Internal Medicine Geriatric Medicine
PROC: 0T9B70Z Drainage of Bladder with Drainage Device, Via Natural or Artificial Opening (ICD-10-PCS; principal; 2019-02-13)
DX: J18.9 Pneumonia, unspecified organism (principal); Z68.1 Body mass index [BMI] 19.9 or less, adult; R62.7 Adult failure to thrive; I10 Essential (primary) hypertension; K74.60 Unspecified cirrhosis of liver; E87.6 Hypokalemia; I25.10 Atherosclerotic heart disease of native coronary artery without angina pectoris; F03.90 Unspecified dementia, unspecified severity, without behavioral disturbance, psychotic disturbance, mood disturbance, and anxiety; K21.9 Gastro-esophageal reflux disease without esophagitis; M19.90 Unspecified osteoarthritis, unspecified site; S40.012A Contusion of left shoulder, initial encounter; S40.011A Contusion of right shoulder, initial encounter; S80.02XA Contusion of left knee, initial encounter; S80.01XA Contusion of right knee, initial encounter; W19.XXXA Unspecified fall, initial encounter; Z91.81 History of falling; Z86.79 Personal history of other diseases of the circulatory system

== ENCOUNTER 2019-03-14 16:30 | Inpatient (IN) | payer MEDICARE ==
[2019-03-14] VITALS (9 sets, daily range): BP systolic 105–139; BP diastolic 58–66
[~2019-03-14] VITALS: Ht 185.4 cm; Wt 76.8 kg
[~2019-03-14 16:30] MED LIST changes: +TURMERIC CURCU500 MG PO
[2019-03-14 18:19] LABS: HEMOGLOBIN 10.5 g/dl (14.0-18.0); IMMATURE GRANULOCYTES 1.2 % (0.0-5.0); MEAN CORPUSCULAR HGB 34.8 pG CALC (26.0-32.0); MEAN CORPUSCULAR HGB CONC 30.9 g/L CALC (32.0-36.0); NEUT# 3.26 thou/uL (1.82-7.42); RED BLOOD COUNT 3.02 mill/uL (4.70-6.10); RED CELL DISTRI WIDTH 19.1 % (11.5-15.5)
[2019-03-14 18:36] LABS: URINE BILIRUBIN - DIPSTICK NEGATIVE (NEGATIVE); URINE BLOOD DIPSTICK LARGE (NEGATIVE); URINE COLOR YELLOW; URINE GLUCOSE - DIPSTICK NEGATIVE (NEGATIVE); URINE KETONE NEGATIVE (NEGATIVE); URINE NITRITE - DIPSTICK NEGATIVE (Negative); URINE PH 6.5 (4.5-8.0); URINE PROTEIN - DIPSTICK NEGATIVE (NEG-TRACE); URINE UROBILINOGEN - DIPSTICK 0.2 E.U./dL (0.2)
[2019-03-14 18:37] LABS: URINE LEUK ESTERASE MODERATE (NEGATIVE)
[2019-03-14 18:40] LABS: MEAN CELL VOLUME 112.6 fL CALC (80.0-100.0)
[2019-03-14] MEDS ORDERED: CIPROFLOXACN250 MG PO (18:42)
[2019-03-14] MEDS ORDERED: TYLENOL325 M2 PO (18:44)
[2019-03-14] MEDS ORDERED: MILK OF MAG30 ML/UDC PO (18:45)
[2019-03-14 18:48] LABS: POTASSIUM 2.9 mmol/l (3.5-5.1)
[2019-03-14 18:50] LABS: CREATININE 2.4 mg/dL (0.7-1.3)
[2019-03-14 22:13] LABS: HEMATOCRIT 31.1 % (39.0-50.0); HEMOGLOBIN 9.6 g/dl (14.0-18.0); IMMATURE GRANULOCYTES 1.3 % (0.0-5.0); MEAN CELL VOLUME 113.1 fL CALC (80.0-100.0); MEAN CORPUSCULAR HGB 34.9 pG CALC (26.0-32.0); MEAN CORPUSCULAR HGB CONC 30.9 g/L CALC (32.0-36.0); NEUT# 2.94 thou/uL (1.82-7.42); RED BLOOD COUNT 2.75 mill/uL (4.70-6.10)
[2019-03-14 22:46] LABS: CREATININE 2.3 mg/dL (0.7-1.3); POTASSIUM 2.8 mmol/l (3.5-5.1)
[2019-03-15] VITALS (12 sets, daily range): BP systolic 101–146; BP diastolic 50–74
[2019-03-15 05:07] LABS: HEMATOCRIT 30.8 % (39.0-50.0); HEMOGLOBIN 9.7 g/dl (14.0-18.0); IMMATURE GRANULOCYTES 1.1 % (0.0-5.0); MEAN CELL VOLUME 111.6 fL CALC (80.0-100.0); MEAN CORPUSCULAR HGB 35.1 pG CALC (26.0-32.0); MEAN CORPUSCULAR HGB CONC 31.5 g/L CALC (32.0-36.0); NEUT# 3.38 thou/uL (1.82-7.42); RED BLOOD COUNT 2.76 mill/uL (4.70-6.10); RED CELL DISTRI WIDTH 18.8 % (11.5-15.5)
[2019-03-15 05:28] LABS: BILIRUBIN, TOTAL 4.8 mg/dL (0.0-1.4); CREATININE 2.4 mg/dL (0.7-1.3); POTASSIUM 2.8 mmol/l (3.5-5.1); TOTAL PROTEIN 6.1 g/dL (6.3-8.2)
[2019-03-15 12:47] LABS: CREATININE 2.3 mg/dL (0.7-1.3); POTASSIUM 3.3 mmol/l (3.5-5.1)
[2019-03-16] VITALS (21 sets, daily range): BP systolic 84–130; BP diastolic 50–75
[2019-03-16 05:35] LABS: HEMOGLOBIN 8.8 g/dl (14.0-18.0); IMMATURE GRANULOCYTES 0.7 % (0.0-5.0); MEAN CELL VOLUME 109.4 fL CALC (80.0-100.0); MEAN CORPUSCULAR HGB 34.4 pG CALC (26.0-32.0); MEAN CORPUSCULAR HGB CONC 31.4 g/L CALC (32.0-36.0); NEUT# 3.98 thou/uL (1.82-7.42); RED BLOOD COUNT 2.56 mill/uL (4.70-6.10); RED CELL DISTRI WIDTH 18.4 % (11.5-15.5)
[2019-03-16 05:48] LABS: ALBUMIN 1.8 g/dL (3.2-5.0); BILIRUBIN, TOTAL 4.8 mg/dL (0.0-1.4); CREATININE 2.2 mg/dL (0.7-1.3); TOTAL PROTEIN 5.7 g/dL (6.3-8.2)
[2019-03-16 15:38] LABS: AMYLASE 58 u/l (30-110); LIPASE 175 u/l (23-300)
[2019-03-17] VITALS (13 sets, daily range): BP systolic 91–141; BP diastolic 52–71
[2019-03-17 05:12] LABS: HEMATOCRIT 33.8 % (39.0-50.0); MEAN CORPUSCULAR HGB 33.5 pG CALC (26.0-32.0); MEAN CORPUSCULAR HGB CONC 33.1 g/L CALC (32.0-36.0); NEUT# 5.38 thou/uL (1.82-7.42); RED BLOOD COUNT 3.34 mill/uL (4.70-6.10); RED CELL DISTRI WIDTH 22.6 % (11.5-15.5)
[2019-03-17 05:22] LABS: HEMOGLOBIN 11.2 g/dl (14.0-18.0); MEAN CELL VOLUME 101.2 fL CALC (80.0-100.0)
[2019-03-17 05:28] LABS: POTASSIUM 3.5 mmol/l (3.5-5.1)
[2019-03-18] VITALS (12 sets, daily range): BP systolic 113–154; BP diastolic 64–94
[2019-03-18 05:19] LABS: URINE BILIRUBIN - DIPSTICK NEGATIVE (NEGATIVE); URINE BLOOD DIPSTICK LARGE (NEGATIVE); URINE COLOR YELLOW; URINE GLUCOSE - DIPSTICK NEGATIVE (NEGATIVE); URINE KETONE NEGATIVE (NEGATIVE); URINE LEUK ESTERASE LARGE (Negative); URINE NITRITE - DIPSTICK NEGATIVE (Negative); URINE PROTEIN - DIPSTICK NEGATIVE (NEG-TRACE)
[2019-03-18 05:22] LABS: URINE CLARITY CLOUDY; URINE RBC 25-50 RBC/hpf (0-5)
[2019-03-18 05:23] LABS: URINE BACTERIA FEW hpf; URINE CALCIUM OXALATE CRYSTALS FEW lpf; URINE WBC 20-50 WBC/hpf (0-5)
[2019-03-18 05:35] LABS: HEMOGLOBIN 11.9 g/dl (14.0-18.0); MEAN CORPUSCULAR HGB 33.7 pG CALC (26.0-32.0); MEAN CORPUSCULAR HGB CONC 33.1 g/L CALC (32.0-36.0); NEUT# 4.07 thou/uL (1.82-7.42); RED BLOOD COUNT 3.53 mill/uL (4.70-6.10); RED CELL DISTRI WIDTH 21.8 % (11.5-15.5)
[2019-03-18 05:46] LABS: BILIRUBIN, TOTAL 4.7 mg/dL (0.0-1.4); CREATININE 1.9 mg/dL (0.7-1.3); POTASSIUM 3.1 mmol/l (3.5-5.1); TOTAL PROTEIN 6.6 g/dL (6.3-8.2)
[2019-03-18 05:53] LABS: ALBUMIN 2.2 g/dL (3.2-5.0)
[2019-03-19] VITALS (9 sets, daily range): BP systolic 122–137; BP diastolic 65–95
[2019-03-19 07:11] LABS: CREATININE 1.6 mg/dL (0.7-1.3)
[2019-03-20 04:59] VITALS: BP 116/71
[2019-03-20 05:26] LABS: HEMATOCRIT 30.9 % (39.0-50.0); HEMOGLOBIN 10.2 g/dl (14.0-18.0); IMMATURE GRANULOCYTES 0.8 % (0.0-5.0); MEAN CORPUSCULAR HGB 33.7 pG CALC (26.0-32.0); NEUT# 3.77 thou/uL (1.82-7.42); RED BLOOD COUNT 3.03 mill/uL (4.70-6.10); RED CELL DISTRI WIDTH 20.3 % (11.5-15.5)
[2019-03-20 05:43] LABS: ALBUMIN 1.9 g/dL (3.2-5.0); BILIRUBIN, TOTAL 4.2 mg/dL (0.0-1.4); CREATININE 1.6 mg/dL (0.7-1.3); POTASSIUM 3.5 mmol/l (3.5-5.1)
[2019-03-20 08:25] VITALS: BP 125/70
[2019-03-20 16:34] VITALS: BP 122/96
[2019-03-20 19:55] VITALS: BP 124/64
[2019-03-21 03:59] VITALS: BP 114/70
[2019-03-21 07:34] VITALS: BP 120/74
[2019-03-21 14:55] VITALS: BP 120/71
[2019-03-21 19:05] VITALS: BP 125/73
[2019-03-22 04:00] VITALS: BP 101/55
[2019-03-22 05:15] LABS: HEMATOCRIT 28.8 % (39.0-50.0); HEMOGLOBIN 9.3 g/dl (14.0-18.0); IMMATURE GRANULOCYTES 0.8 % (0.0-5.0); MEAN CELL VOLUME 104.3 fL CALC (80.0-100.0); MEAN CORPUSCULAR HGB 33.7 pG CALC (26.0-32.0); MEAN CORPUSCULAR HGB CONC 32.3 g/L CALC (32.0-36.0); NEUT# 3.64 thou/uL (1.82-7.42); RED BLOOD COUNT 2.76 mill/uL (4.70-6.10)
[2019-03-22 07:36] VITALS: BP 102/61
[2019-03-22 09:40] LABS: INTERNATIONAL NORMALIZED RATIO 1.4 RATIO (0.7-1.3); PROTHROMBIN TIME 14.5 SECONDS (9.0-12.5)
[2019-03-22 09:47] LABS: ALBUMIN 2.1 g/dL (3.2-5.0); BILIRUBIN, TOTAL 4.3 mg/dL (0.0-1.4); CREATININE 1.8 mg/dL (0.7-1.3); POTASSIUM 3.6 mmol/l (3.5-5.1); TOTAL PROTEIN 6.4 g/dL (6.3-8.2)
[2019-03-22 15:34] VITALS: BP 114/73
[2019-03-22 19:12] VITALS: BP 116/70
[2019-03-23 04:03] VITALS: BP 98/55
[2019-03-23 05:14] LABS: HEMATOCRIT 28.8 % (39.0-50.0); HEMOGLOBIN 9.2 g/dl (14.0-18.0); MEAN CELL VOLUME 105.9 fL CALC (80.0-100.0); MEAN CORPUSCULAR HGB 33.8 pG CALC (26.0-32.0); MEAN CORPUSCULAR HGB CONC 31.9 g/L CALC (32.0-36.0); RED BLOOD COUNT 2.72 mill/uL (4.70-6.10); RED CELL DISTRI WIDTH 20.1 % (11.5-15.5)
[2019-03-23 05:36] LABS: ALBUMIN 1.8 g/dL (3.2-5.0); BILIRUBIN, TOTAL 3.4 mg/dL (0.0-1.4); CREATININE 1.8 mg/dL (0.7-1.3); POTASSIUM 3.6 mmol/l (3.5-5.1); TOTAL PROTEIN 5.5 g/dL (6.3-8.2)
[2019-03-23 07:52] VITALS: BP 121/72
[2019-03-23 07:54] VITALS: BP 121/72
[2019-03-23] MEDS ORDERED: AUGMENTIN500TAB PO (08:04)
[2019-03-23] MEDS ORDERED: LACTULOSE10 GM/15 M PO (08:04)
== END 2019-03-23 15:48 | DRG 640 ==
LOC: ICU 16:30 → MS2 03-19 13:49
PROVIDERS: ADMIT Internal Medicine Geriatric Medicine; ATTEND Internal Medicine
PROC: 30233N1 Transfusion of Nonautologous Red Blood Cells into Peripheral Vein, Percutaneous Approach (ICD-10-PCS; principal; 2019-03-16)
PROC: 30233N1 Transfusion of Nonautologous Red Blood Cells into Peripheral Vein, Percutaneous Approach (ICD-10-PCS; 2019-03-16)
PROC: 05H933Z Insertion of Infusion Device into Right Brachial Vein, Percutaneous Approach (ICD-10-PCS; 2019-03-18)
PROC: B51MZZA Fluoroscopy of Right Upper Extremity Veins, Guidance (ICD-10-PCS; 2019-03-18)
DX: E87.0 Hyperosmolality and hypernatremia (principal); J69.0 Pneumonitis due to inhalation of food and vomit; Z68.1 Body mass index [BMI] 19.9 or less, adult; E86.0 Dehydration; I12.9 Hypertensive chronic kidney disease with stage 1 through stage 4 chronic kidney disease, or unspecified chronic kidney disease; N18.9 Chronic kidney disease, unspecified; I25.10 Atherosclerotic heart disease of native coronary artery without angina pectoris; F03.90 Unspecified dementia, unspecified severity, without behavioral disturbance, psychotic disturbance, mood disturbance, and anxiety; K74.60 Unspecified cirrhosis of liver; R62.7 Adult failure to thrive; E87.6 Hypokalemia; D64.9 Anemia, unspecified; K80.20 Calculus of gallbladder without cholecystitis without obstruction; E77.8 Other disorders of glycoprotein metabolism; K72.90 Hepatic failure, unspecified without coma; E83.52 Hypercalcemia; M19.90 Unspecified osteoarthritis, unspecified site; K21.9 Gastro-esophageal reflux disease without esophagitis; Z66 Do not resuscitate
CPT/HCPCS: P9016

== ENCOUNTER 2019-03-31 20:56 | Inpatient (IN) | payer MEDICARE ==
[~2019-03-31] VITALS: Ht 185.4 cm; Wt 79.9 kg
[~2019-03-31 20:56] MED LIST changes: +AUGMENTIN500TAB PO; +CIPROFLOXACN250 MG PO; +LACTULOSE10 GM/15 M PO; +MILK OF MAG30 ML/UDC PO; +TYLENOL325 M2 PO
--- NOTE | 2019-03-31 21:04 | NUR ---
RECEIVED PT ALREADY IN ROOM WITH BIPAP. REPORTED PT FROM [facility] FOR SOB/CHF. PT HAS WOUND TO R SHOULDER AND RIGHT LEG WITH DRESSING IN PLACE. PT HAS DISTENDED ABDOMEN AND EDEMA TO B/L ELBOW AREAS.
--- NOTE | 2019-03-31 21:10 | NUR ---
PT HAS INDWELLING CATHETER WITH BROWNISH URINE DRAINING TO BEDSIDE COLLECTION BAG
[2019-03-31 21:59] LABS: HEMATOCRIT 27.5 % (39.0-50.0); HEMOGLOBIN 8.3 g/dl (14.0-18.0); IMMATURE GRANULOCYTES 0.7 % (0.0-5.0); MEAN CORPUSCULAR HGB 35.2 pG CALC (26.0-32.0); MEAN CORPUSCULAR HGB CONC 30.2 g/L CALC (32.0-36.0); NEUT# 3.76 thou/uL (1.82-7.42); RED BLOOD COUNT 2.36 mill/uL (4.70-6.10); RED CELL DISTRI WIDTH 22.8 % (11.5-15.5)
--- NOTE | 2019-03-31 21:59 | NUR ---
FAMILY AT BEDSIDE.
[2019-03-31 22:00] LABS: URINE BLOOD DIPSTICK LARGE (NEGATIVE); URINE GLUCOSE - DIPSTICK NEGATIVE (NEGATIVE); URINE KETONE TRACE mg/dL (NEGATIVE); URINE PH 6.5 (4.5-8.0); URINE PROTEIN - DIPSTICK 100 mg/dL (NEG-TRACE); URINE SPECIFIC GRAVITY 1.025
[2019-03-31 22:01] LABS: URINE BILIRUBIN - DIPSTICK MODERATE (NEGATIVE); URINE COLOR AMBER; URINE LEUK ESTERASE LARGE (NEGATIVE); URINE NITRITE - DIPSTICK POSITIVE (Negative)
[2019-03-31 22:11] LABS: URINE BACTERIA MODERATE hpf; URINE RBC TNTC RBC/hpf (0-5); URINE SQUAMOUS EPITHELIAL CELL FEW EPI/hpf (0-FEW); URINE WBC TNTC WBC/hpf (0-5)
[2019-03-31 22:14] LABS: ALBUMIN 2.1 g/dL (3.2-5.0); POTASSIUM 4.1 mmol/l (3.5-5.1); TOTAL PROTEIN 6.1 g/dL (6.3-8.2)
[2019-03-31 22:15] LABS: MEAN CELL VOLUME 116.5 fL CALC (80.0-100.0)
[2019-03-31 22:17] LABS: BILIRUBIN, TOTAL 4.8 mg/dL (0.0-1.4)
[2019-03-31 22:19] LABS: INTERNATIONAL NORMALIZED RATIO 1.5 RATIO (0.7-1.3); PROTHROMBIN TIME 15.7 SECONDS (9.0-12.5)
--- NOTE | 2019-03-31 22:20 | NUR ---
DR JAEGER DISCUSSED WITH FAMILY PLAN OF CARE AND FAMILY'S WISHES FOR PT. FAMILY JUST WANTS PT TO HAVE COMFORT MEASURES ONLY. STATES PT WAS GURGLING AT THE CUSTODIAL AND THAT WAS WHY PT WAS SENT HERE. FEELS COMFORTABLE WITH PT ON BIPAP STATES PT ISN'T GURGLING ANY MORE.
--- NOTE | 2019-03-31 23:20 | NUR ---
PT SWITCHED TO 100% NRB FOR TRANSPORT TO ICU. REPORT GIVEN TO SIXTO SAWYER. BART ELIZABETH BLANKET SENT WITH PT. FAMILY AT BEDSIDE FOLLOWING PT TO FLOOR. SIXTO CASIANO TRANSPORTING PT.
[2019-03-31 23:30] VITALS: BP 102/54
--- NOTE | 2019-03-31 23:30 | NUR ---
PT ARRIVED TO UNIT VIA STRETCHER WITH ER STAFF AND FAMILY; ALERT AND NON VERBAL; 100% NON REBREATHER IN PLACE. RT AT BEDSIDE TO IMMEDIATELY RECONNECT TO BIPAP. PT ASSISTED TO BED WITH 3 PERSON ASSIST; PT ABLE TO FOLLOW SIMPLE COMMANDS SUCH LIFTING HIS HEAD. NO SIGNS OF DISTRESS. RESPIRATIONS EVEN AND UNLABORED ON BIPAP; 95% SP02. ASSESSMENT COMPLETED UPON ARRIVAL AND PHOTOS TAKEN OF WOUNDS TO BUTTOCK AND RIGHT SHOULDER. BARE HUGGER ALSO APPLIED FOR RECTAL TEMP OF 92.5. VSS AT THIS TIME. FAMILY ALLOWED BACK AND ORIENTED TO ROOM AND CALL LIGHT SYSTEM. PLAN OF CARE DISCUSSED WITH FAMILY; FAMILY REPORTS UNDERSTANDING OF POOR PROGNOSIS. SAFETY MEASURES IN PLACE. PT REPOSITIONED WITH PILLOWS. NEEDS ANTICIPATED BY STAFF.
[2019-03-31 23:45] VITALS: BP 72/50
--- NOTE | 2019-03-31 23:56 | NUR ---
LAB AT BEDSIDE FOR SECOND LACTIC ACID. FAMILY AT BEDSIDE. IV FLUIDS INFUSING PER ORDER AT 125ML/HR; ZITHROMAX STARTED; INFUSING WITHOUT DIFFICULTY; IV SITE APPEARS HEALTHY. MURPHY DRAINING CLOUDY BROWN URINE; LEG STRAP INTACT TO RIGHT THIGH; SMALL AMOUNT OF BLOOD NOTED TO RIGHT THIGH.
[2019-04-01] VITALS (15 sets, daily range): BP systolic 0–74; BP diastolic 0–54
--- NOTE | 2019-04-01 00:18 | NUR ---
CRITICAL RESULT CALLED FROM LAB; LACTIC ACID 4.2. PT UNABLE TO CONFIRM NAME AND ; WAS ABLE TO CONFIRM. PHOTO OF PT PLACED IN CHART AND ABOVE BED.
--- NOTE | 2019-04-01 00:28 | NUR ---
SPOKE WITH KANDY, NURSE AT &R; UPDATED ON PT ADMISSION DX AND H&P REQUESTED.
--- NOTE | 2019-04-01 01:42 | NUR ---
BIPAP ALARMING FREQUENTLY; PT ATTEMPTING TO REMOVE FROM FACE AND HAS FACIAL GRIMACING. RT AT BEDSIDE TO REMOVE BIPAP AND APPLY NON REBREATHER FOR PT COMFORT. PT REMAINS HYPOTENSIVE AND TYMPANIC TEMPERATURE IS 92.0; BARE HUGGER STILL ON. NO FAMILY CURRENTLY AT BEDSIDE.
--- NOTE | 2019-04-01 03:29 | NUR ---
PT REPOSITIONED ONTO [facility] SIDE WITH PILLOWS; OXYGEN SATURATIONS FROM 89-95% ON NON REBREATHER; PT APPEARS MORE COMFORTABLE WITH SIMPLE FACE MASK. OPENS EYES TO VERBAL STIMULI, BUT REMAINS NON VERBAL. WILL CONTINUE TO MONITOR.
--- NOTE | 2019-04-01 04:47 | NUR ---
TEMPERATURE UP TO 95.8 TYMPANIC. PT VERY ALERT AT THIS TIME, BUT UNABLE TO VOID NEEDS. PT MAKES EYE CONTACT AND GRUNTING SOUNDS WHEN ASKED A QUESTION, BUT DOES NOT SPEAK. WHEN ASSISTED WITH REPOSITIONING PT DID GRAB ONTO SIDE RAIL AND HELPED; HE IS MOVING AROUND SLIGHTLY IN THE BED; BED ALARM PLACED FOR SAFETY SINCE PT IS MORE ACTIVE. CURRENTLY SINUS TACH 103 WITH EXERTION.
--- NOTE | 2019-04-01 04:56 | NUR ---
PT MORE RESTLESS; HAS REMOVED FACE MASK TWICE AND OXYGEN SATURATION DECREASED INTO THE 70'S; REPLACED MASK AND INSTRUCTED PT TO LEAVE MASK IN PLACE AND ENCOURAGED DEEP BREATHING. CURRENTLY AT 90% SP02.
--- NOTE | 2019-04-01 05:46 | NUR ---
MURPHY CARE PROVIDE AND LOTION APPLIED TO SKIN. 75ML OF CLOUDY BROWN URINE EMPTIED FROM MURPHY. IV FLUIDS CONTINUE AND IV SITE APPEARS HEALTHY. 4+ PITTING EDEMA TO BLE; ELEVATED ON PILLOWS. BP 66/38 HR 107.
--- NOTE | 2019-04-01 06:13 | NUR ---
RT AT BEDSIDE FOR EKG.
--- NOTE | 2019-04-01 06:24 | NUR ---
PT PLACED BACK ON BIPAP DUE TO OXYGEN SATURATIONS IN THE 80'S AND TACHYPNEA.
--- NOTE | 2019-04-01 06:50 | NUR ---
RECVD REPORT FROM SIXTO SAWYER @START OF SHIFT.
--- NOTE | 2019-04-01 07:30 | NUR ---
PT APPEARS TO BE HAVING A HARD TIME WITH BIPAP MACHINE; PT KEEPS PULLING ON THE TUBING. BIPAP PLACED ON STANDBY. PT GIVEN SIPS OF CRANBERRY JUICE & APPLE CLEAR ENSURE; PT CHOKED ON AVERAGE OF EVERY 3-4 SIPS. THIS RN DOES NOT FEEL COMFORTABLE GIVEN PT FOOD AT THIS TIME D/T CHOKING ON LIQUID. NRB MASK PLACED ON PT. BART HUGGER REMAINS ON HIGH. PT IS NONVERBAL; DOES NOT FOLLOW DIRECTIONS. BREATHING IS EVEN/MILD LABORED; COARSE LUNG SOUNDS. RESTLESS. AWAKE. OPENS EYES FOR A SECOND W/OUT REASON. DISPO PENDING HOSPICE CONSULT TODAY. CATH MURPHY DRAINING TO BAG BELOW BED. NS RUNNING @125 TO #22 RH.
--- NOTE | 2019-04-01 07:46 | NUR ---
PT MOVING LEGS, BENDING KNEES.
--- NOTE | 2019-04-01 07:56 | NUR ---
DAUGHTER IN LAW CALLED TO VERIFY PT "WAS STILL ALIVE"
--- NOTE | 2019-04-01 08:24 | NUR ---
DR CAMPUZANO @BEDSIDE FOR ASSESSMENT. NRB REPLACED WITH 2L NC. PT APPEARS MORE RESTFULL AT THIS TIME. [facility] (HOSPICE) CALLED REQUEST FACESHEET BE FAXED TO [phone] & [facility] (HOSPICE) CALLED TO REQUEST PTS WIFES PHONE # TO SET UP AN APPOINTMENT FOR THIS MORNING.
--- NOTE | 2019-04-01 08:45 | NUR ---
MORPHINE & ATIVAN HELD [facility]/HOSPICE STATES SHE CANT GET AHOLD OF FAMILY. PT APPEARS COMFORTABLE AT THIS TIME.
--- NOTE | 2019-04-01 09:32 | NUR ---
PT TAKING GASPING BREATHS. 73% O2 ON 2L NC. HR JUMPING FROM RUNS IN 70'S TO RUNS IN 100'S AND BACK. BP 64/40. 22 RR. LABORED BREATHING. MEDICATED WITH ATIVAN.
--- NOTE | 2019-04-01 10:24 | NUR ---
PTS & DAUGHTER @BEDSIDE. THEY STATES HOSPICE IS MEETING THEM HERE.
--- NOTE | 2019-04-01 10:30 | NUR ---
HOSPICE ARRIVED TO UNIT.
--- NOTE | 2019-04-01 10:35 | NUR ---
PTS HR DROPPED TO 0, TELE READ ASYSTOLE. RR 0. O2 O%. NOT ABLE OBTAIN BP. & DAUGHTER @BEDSIDE. HOLDING PTS HAND. ADVISED FAMILY THAT PTS HEART AND LUNGS HAD STOPPED. DAUGHTER STARTED CRYING. REMAINS HOLDING PTS HAND. MONITORS, IVF, & BART HUGGER TURNED OFF. GREIVING CART ORDERED FROM [employer]. FAMILY MAKING PHONE CALLS TO RELATIVES; AWARE THEY CAN STAY LONG THEY NEED. FAMILY WOULD LIKE PT TO GO TO [facility].
--- NOTE | 2019-04-01 11:01 | NUR ---
CALLED [facility] FOR DETERMINATION OF MEDICAL SUITABILITY.
--- NOTE | 2019-04-01 11:45 | NUR ---
DAUGHTER & REMAIN @BEDSIDE. GREIVING CART & ANAIX IN ROOM.
--- NOTE | 2019-04-01 12:06 | NUR ---
FAMILY DENIES ANY NEEDS AT THIS TIME, THEY STATES THEY ARE WAITING FOR THE REST OF THE FAMILY TO COME SAY [place].
--- NOTE | 2019-04-01 12:22 | NUR ---
CALLED [facility] AGAIN FOR UPDATE. THEY WCB.
--- NOTE | 2019-04-01 12:24 | NUR ---
FAMILY GAVE PERMISSION TO CALL [id number] FOR FURNACE BUILDER. THEY WILL CONTACT REST OF FAMILY.
--- NOTE | 2019-04-01 12:48 | NUR ---
QUINTON @BEDSIDE WITH FAMILY
--- NOTE | 2019-04-01 13:09 | NUR ---
PT OUT THE DOOR WITH HOME. FAMILY LEFT.
== END 2019-04-01 13:09 | disposition expired | DRG 871 ==
LOC: ED 20:56 → ED-I 22:30 → ED 22:54 → ICU 22:55
PROVIDERS: Emergency Medicine; ADMIT Internal Medicine; ATTEND Internal Medicine
PROC: 5A09357 Assistance with Respiratory Ventilation, Less than 24 Consecutive Hours, Continuous Positive Airway Pressure (ICD-10-PCS; principal; 2019-03-31)
DX: A41.9 Sepsis, unspecified organism (principal); K76.7 Hepatorenal syndrome; J96.01 Acute respiratory failure with hypoxia; R65.20 Severe sepsis without septic shock; I11.0 Hypertensive heart disease with heart failure; K70.31 Alcoholic cirrhosis of liver with ascites; E86.0 Dehydration; I50.9 Heart failure, unspecified; K72.90 Hepatic failure, unspecified without coma; I95.9 Hypotension, unspecified; F03.90 Unspecified dementia, unspecified severity, without behavioral disturbance, psychotic disturbance, mood disturbance, and anxiety; R62.7 Adult failure to thrive; M19.90 Unspecified osteoarthritis, unspecified site; I25.10 Atherosclerotic heart disease of native coronary artery without angina pectoris; T17.908A Unspecified foreign body in respiratory tract, part unspecified causing other injury, initial encounter; X58.XXXA Exposure to other specified factors, initial encounter; Z66 Do not resuscitate; Z51.5 Encounter for palliative care; Z87.01 Personal history of pneumonia (recurrent); Z86.73 Personal history of transient ischemic attack (TIA), and cerebral infarction without residual deficits
CPT/HCPCS: J2060